=== PATIENT | female | born 1975 | race Caucasian/White ===

== ENCOUNTER 2019-11-17 08:52 | Outpatient (CLI) | payer BC ==
[2019-11-17] VITALS (15 sets, daily range): BP systolic 122–153; BP diastolic 79–98; PULSE 64–90
[~2019-11-17] VITALS: Ht 165.1 cm; Wt 82.3 kg
[~2019-11-17 08:52] MED LIST: DOXYCYCLINE 10100 MG PO; PREDNISONE20 MG PO; PROZAC 10MG10 MG PO
--- NOTE | 2019-11-17 09:45 | NUR ---
PT AMBULATORY TO CT. PT IS POSITIONED ON THE TABEL. MONITORING EQUIPMENT PLACED. IMAGES TAKEN AND SENT
--- NOTE | 2019-11-17 10:05 | NUR ---
PT GIVEN 0.5 MG VERSED AND 25 MCG FENTANYL
--- NOTE | 2019-11-17 10:20 | NUR ---
PT IS ASSISTED OFF THE TABLE AND ON TO A CART. SHE IS TAKEN TO [facility].
--- NOTE | 2019-11-17 12:37 | NUR ---
Discharge instructions given to pt.Pt verbalizes understanding.INt removed,catheter tip intact.Pt escorted out via wheelchair by this nurse.
== END 2019-11-17 12:41 | disposition home or self-care (01) ==
LOC: COL.RAD 08:52
DX: R91.8 Other nonspecific abnormal finding of lung field (principal)
CPT/HCPCS: J2250; J3010